=== PATIENT | female | born 1975 | race Caucasian/White ===

== ENCOUNTER 2017-06-29 18:14 | Emergency (ER) | payer MEDICARE ==
[~2017-06-29] VITALS: Ht 152.4 cm; Wt 51.7 kg
[~2017-06-29 18:14] MED LIST: AMBIEN 5 MG TABL5 M1; AMBIEN 5 MG TABL5 M1 PO; CLONAZEPAM 1 MG1 M1; EXCEDRIN MIGRA1 EAC1 PO; KLONOPIN0.5 MG; METHYLPRED; NEXIUM20 M1; NORCO 5-325 TA1 EACH PO; ONDANSETRON HCL4 M2 PO; PREDNISONE 10 M10 M1; PROAIR HFA8.5 GM IH
[2017-06-29] MEDS ORDERED: COPAXONE20 MG/SYR SUBQ (18:24)
[2017-06-29] MEDS ORDERED: IBUPROFEN 600600 M1 PO (18:24)
[2017-06-29 21:32] VITALS: BP 116/50
== END 2017-06-29 21:37 | disposition home or self-care (01) ==
LOC: M.ERS 18:14
DX: R51 Headache (principal); K58.9 Irritable bowel syndrome, unspecified; G35 Multiple sclerosis; Z98.890 Other specified postprocedural states; Z91.040 Latex allergy status

== ENCOUNTER 2017-09-25 09:54 | Emergency (ER) | payer MEDICARE ==
[~2017-09-25] VITALS: Ht 152.4 cm; Wt 51.7 kg
[~2017-09-25 09:54] MED LIST changes: +COPAXONE20 MG/SYR SUBQ; +IBUPROFEN 600600 M1 PO
[2017-09-25 10:58] LABS: URINE BLOOD 3+ (Negative); URINE CLARITY CLEAR; URINE COLOR YELLOW; URINE GLUCOSE-RANDOM NEGATIVE (Negative); URINE KETONES 2+ (Negative); URINE LEUKOCYTES-REFLEX TRACE (Negative); URINE NITRITE-REFLEX NEGATIVE (Negative); URINE PROTEIN 1+ (Negative); URINE SPECIFIC GRAVITY 1.025 (1.005-1.030); URINE UROBILINOGEN 0.2 E.U./dl (0.2-1.0)
[2017-09-25 10:59] LABS: URINE BILIRUBIN 1+ (Negative)
[2017-09-25 11:01] LABS: ICTOTEST (BILI CONFIRMATORY) Positive (Negative)
[2017-09-25 11:05] LABS: CASTS None Seen /LPF (None Seen); CRYSTALS None Seen /LPF (None Seen); MUCUS None Seen strn/LPF (None Seen); SQUAMOUS 4-10 Moderate /LPF (0-3); URINE RBC >20 Many /HPF (0-2); URINE WBC-REFLEX 6-15 Few /HPF (0-5)
[2017-09-25 11:15] LABS: ABSOLUTE EOSINOPHILS 0.1 thou/uL (0.0-0.7); ABSOLUTE LYMPHOCYTES 0.6 thou/uL (0.8-5.3); ABSOLUTE MONOCYTES 0.2 thou/uL (0.0-1.2); ABSOLUTE NEUTROPHILS 3.4 thou/uL (1.6-8.1); BASOPHILS 0.2 %; EOSINOPHILS 1.9 %; HEMATOCRIT 38.7 % (37.0-47.0); HEMOGLOBIN 12.6 gm/dL (12.0-15.0); MCH 27.3 pg (26.0-34.0); MCHC 32.6 g/dL (28.0-37.0); MCV 83.7 fL (80.0-100.0); MONOCYTES 3.7 %; MPV 7.6 fl. (7.2-11.1); NUCLEATED RBCS 0 /100WBC; PLATELET COUNT* 214 thou/uL (150-400); POLYS 80.2 %; RBC 4.62 mil/uL (4.20-5.00); RDW-CV 13.6 % (10.5-14.5); WBC 4.3 thou/uL (4.0-11.0)
[2017-09-25 11:23] LABS: CALCIUM 8.3 mg/dL (8.5-10.1); CREATININE 0.7 mg/dL (0.6-1.3)
[2017-09-25 11:33] LABS: ALBUMIN 3.1 g/dL (3.4-5.0); TOTAL BILIRUBIN 0.6 mg/dL (<0.1-1.0); TOTAL PROTEIN 6.5 g/dL (6.4-8.2)
[2017-09-25 11:34] LABS: POTASSIUM 2.9 mmol/L (3.5-5.1)
[2017-09-25] MEDS ORDERED: ZOFRAN ODT4 MG PO (11:53)
[2017-09-25] MEDS ORDERED: BUTALB-APAP-CA1 EACH PO (11:53)
[2017-09-25] MEDS ORDERED: BACTRIM DS TAB1 EACH PO (11:53)
[2017-09-25] MEDS ORDERED: POTASSIUM20 PO (11:57)
[2017-09-25 12:07] VITALS: BP 104/71
== END 2017-09-25 12:08 | disposition home or self-care (01) ==
LOC: M.ERS 09:54
PROVIDERS: Physician Assistant
DX: G43.909 Migraine, unspecified, not intractable, without status migrainosus (principal); N39.0 Urinary tract infection, site not specified; E87.6 Hypokalemia; Z91.040 Latex allergy status

== ENCOUNTER 2017-10-27 14:50 | Emergency (ER) | payer MEDICARE ==
[~2017-10-27] VITALS: Ht 152.4 cm; Wt 51.7 kg
[~2017-10-27 14:50] MED LIST changes: +BACTRIM DS TAB1 EACH PO; +BUTALB-APAP-CA1 EACH PO; +POTASSIUM20 PO; +ZOFRAN ODT4 MG PO
[2017-10-27] MEDS ORDERED: POLYMYXIN B/TMP10 ML OPHTHALMIC (15:29)
[2017-10-27] MEDS ORDERED: CYCLOGYL2 ML OPHTHALMIC (15:29)
[2017-10-27 15:40] VITALS: BP 96/54
== END 2017-10-27 15:40 | disposition home or self-care (01) ==
LOC: M.ERS 14:50
DX: H10.89 Other conjunctivitis (principal); G43.909 Migraine, unspecified, not intractable, without status migrainosus; G35 Multiple sclerosis; Z91.040 Latex allergy status

== ENCOUNTER 2018-06-15 20:13 | Emergency (ER) | payer MEDICARE ==
[~2018-06-15] VITALS: Ht 152.4 cm; Wt 53.5 kg
[~2018-06-15 20:13] MED LIST changes: +CYCLOGYL2 ML OPHTHALMIC; +POLYMYXIN B/TMP10 ML OPHTHALMIC
[2018-06-15] MEDS ORDERED: BUTALB-APAP-CA1 EACH PO (21:44)
[2018-06-15] MEDS ORDERED: HYDROXYZINE HCL25 M1 PO (21:44)
[2018-06-15 22:27] VITALS: BP 143/81
== END 2018-06-15 22:28 | disposition home or self-care (01) ==
LOC: M.ERS 20:13
DX: R51 Headache (principal); Z91.040 Latex allergy status; Z98.890 Other specified postprocedural states; G35 Multiple sclerosis

== ENCOUNTER → 2018-08-28 | Outpatient (CLI) | payer MEDICARE ==
[~2018-08-28] MED LIST changes: +HYDROXYZINE HCL25 M1 PO
== END ==
LOC: M.RAD 10:59
DX: Z12.31 Encounter for screening mammogram for malignant neoplasm of breast (principal)

== ENCOUNTER → 2018-09-18 | Outpatient (CLI) | payer MEDICARE | LOC: M.ULTRA 09:02 | DX: N60.02 Solitary cyst of left breast (principal) ==